=== PATIENT | female | born 1950 | race Caucasian/White ===

== ENCOUNTER 2016-12-04 21:32 | Emergency (ER) | payer BC ==
[2016-12-04] MEDS ORDERED: Sulfamethox/Trimethoprim DS 800/160* TAB PO ONE (22:14)
--- NOTE | 2016-12-04 22:20 | ED ---
GI/ HPI - HPI Summary HPI Summary: 66 yr old female with dysuria, frequency of urination for two days. Denies NV. States she has been ill for a total of two days. She rates her symptoms as moderate. No radiation of pain. symptoms made worse with urination. No fever, chills, NV. - History of Current Complaint Time Seen by Provider: 12/04/16 22:05 Stated Complaint: URINARY Hx Last Menstrual Period: age 53 - Allergy/Home Medications Allergies/Adverse Reactions: Allergies Allergy/AdvReac Type Severity Reaction Status Date / Time Penicillins Allergy Rash Verified 10/05/14 08:56 PMH/Surg Hx/FS Hx/Imm Hx Cardiovascular History: Reports: Hx Hypertension - Surgical History Hx Anesthesia Reactions: Yes Other Surgical History: d and c - Family History Family History: stroke - Social History Occupation: Retired Alcohol Use: Occasionally Substance Use Type: Reports: None Smoking Status (MU): Never Smoked Tobacco Review of Systems Constitutional: Negative Positive: burning, dysuria, urgency All Other Systems Reviewed And Are Negative: Yes Physical Exam Triage Information Reviewed: Yes Vital Signs Reviewed: Yes Appearance: Positive: Well-Appearing, No Pain Distress Skin: Positive: Warm Head/Face: Positive: Normal Head/Face Inspection Eyes: Positive: EOMI ENT: Positive: Normal ENT inspection Neck: Positive: Nontender Respiratory/Lung Sounds: Positive: Clear to Auscultation, Breath Sounds Present Cardiovascular: Positive: RRR Abdomen Description: Positive: Nontender. Negative: CVA Tenderness (R), CVA Tenderness (L) Musculoskeletal: Positive: Strength/ROM Intact Neurological: Positive: Alert, Oriented to Person Place, Time, Normal Gait Psychiatric: Positive: Normal Diagnostics - Laboratory Lab Results: Lab Results 12/04/16 Range/Units 22:06 POC Urine Color Yellow POC Urine Clarity Clear POC Urine pH 5.5 (5-9) POC Ur Specif [place] 1.015 (1.010-1.030) POC Urine Protein 2+ H (Negative) POC Ur Glucose (UA) Negative (Negative) POC Urine Ketones 1+ H (Negative) POC Urine Blood 3+ H (Negative) POC Urine Nitrite Negative (Negative) POC Urine Bilirubin Negative (Negative) POC Urine Urobilinogen 0.2 (Negative) POC U Leukocyte Esteras 3+ H (Negative) Lab Statement: Any lab studies that have been ordered have been reviewed, and results considered in the medical decision making process. GIGU Course/Dx - Course Course Of Treatment: Female with urinary symptoms and positive uti. Will DC home on bactrim DS. - Diagnoses Provider Diagnoses: UTI (urinary tract infection) Discharge - Discharge Plan Condition: Good Disposition: HOME Prescriptions: Sulfamethox/Trimethoprim DS* [Bactrim DS 800/160 TAB*] 1 tab PO BID #10 tab Patient Education Materials: Urinary Tract Infection in Women (ED) Referrals: Bar Bower MD [Primary Care Provider] -
[2016-12-04 22:23] VITALS: BP 124/83
--- NOTE | 2016-12-07 15:37 | UC ---
Progress - Progress Note Progress Note: i did not see where t had been prescribed an abx in [facility]. so, i call pt and she informed me that she was given an rx for bactrim that she has been taking and she is feeling better.
== END 2016-12-04 22:32 | disposition home or self-care (01) ==
LOC: UCCORT 21:32
DX: N39.0 Urinary tract infection, site not specified (principal); I10 Essential (primary) hypertension; Z88.0 Allergy status to penicillin
CPT/HCPCS: 81003; 87077; 87086; 87186; 99212; A9270-GY; G0463

== ENCOUNTER 2018-02-10 17:35 | Emergency (ER) | payer MEDICARE, BC ==
[2018-02-10 18:46] VITALS: BP 147/66
--- NOTE | 2018-02-10 19:08 | UC ---
Complaint Female HPI - HPI Summary HPI Summary: Pt c/o sudden onset of urinary frequency, urgency and dysuria X 1 day. - History Of Current Complaint Chief Complaint: UCGU Stated Complaint: URINARY COMPLAINT Time Seen by Provider: 02/10/18 18:48 Hx Obtained From: Patient Hx Last Menstrual Period: age 53 ?: No Onset/Duration: Sudden Onset, Lasting Hours Timing: Constant Severity Initially: Mild Severity Currently: Mild Pain Intensity: 7 Character: Dull, Burning Aggravating Factor(s): Urination Associated Signs And Symptoms: Positive: Negative - Risk Factors Ectopic Risk Factor: Negative Ovarian Torsion Risk Factor: Negative - Allergies/Home Medications Allergies/Adverse Reactions: Allergies Allergy/AdvReac Type Severity Reaction Status Date / Time MS Penicillins [Penicillins] Allergy Rash Verified 12/04/16 22:18 Home Medications: Home Medications Levothyroxine TAB* [Synthroid 25 MCG TAB*] 25 mcg PO DAILY 02/10/18 [History Confirmed 02/10/18] PMH/Surg Hx/FS Hx/Imm Hx Previously Healthy: Yes Endocrine History: Dyslipidemia - Surgical History Surgical History: None Surgery Procedure, Year, and Place: T&A Other Surgical History: d and c - Family History Known Family History: Positive: Cardiac Disease Family History: stroke - Social History Occupation: Retired Lives: With Family Alcohol Use: Occasionally Substance Use Type: None Smoking Status (MU): Never Smoked Tobacco Have You Smoked in the Last Year: No Review of Systems Constitutional: Negative Skin: Negative Eyes: Negative ENT: Negative Respiratory: Negative Cardiovascular: Negative Gastrointestinal: Negative Genitourinary: Dysuria, Frequency, Urgency Motor: Negative Neurovascular: Negative Musculoskeletal: Negative Neurological: Negative Psychological: Negative Is Patient Immunocompromised?: No All Other Systems Reviewed And Are Negative: Yes Physical Exam Triage Information Reviewed: Yes Appearance: Well-Appearing Vital Signs: Initial Vital Signs Temp 97.1 F 02/10/18 18:40 Pulse 79 02/10/18 18:40 Resp 16 02/10/18 18:40 BP 147/66 02/10/18 18:40 Pulse Ox 100 02/10/18 18:40 Vital Signs Reviewed: Yes Eye Exam: Normal ENT Exam: Normal Dental Exam: Normal Neck exam: Normal Respiratory Exam: Normal Cardiovascular Exam: Normal Abdominal Exam: Normal Abdomen Description: Positive: Nontender Musculoskeletal Exam: Normal Neurological Exam: Normal Psychological Exam: Normal Skin Exam: Normal Complaint Female Dx - Differential Dx/Diagnosis Differential Diagnosis/HQI/PQRI: Urinary Tract Infection Provider Diagnoses: UTI Discharge - Sign-Out/Discharge Documenting (check all that apply): Patient Departure All imaging exams completed and their final reports reviewed: No Studies - Discharge Plan Condition: Stable Disposition: HOME Prescriptions: Cephalexin CAP* [Keflex 500 CAP*] 500 mg PO Q8H #21 cap Phenazopyridine TAB* [Pyridium 100 mg TAB*] 100 mg PO Q8H #3 tab Patient Education Materials: Urinary Tract Infection in Women (ED) Referrals: Latia Evans MD [Primary Care Provider] - If Needed - Billing Disposition and Condition Condition: STABLE Disposition: Home
== END 2018-02-10 19:25 | disposition home or self-care (01) ==
LOC: UCCORT 17:35
DX: N39.0 Urinary tract infection, site not specified (principal); E78.5 Hyperlipidemia, unspecified; Z88.0 Allergy status to penicillin
CPT/HCPCS: 81003; 87077; 87086; 87186; 99213; G0463

== ENCOUNTER 2018-02-22 21:27 | Emergency (ER) | payer MEDICARE, BC ==
--- OUTSIDE RECORDS SUMMARY | 2018-02-22 21:37 | XMS REPORT | Continuity of Care Document ---
:1950 External Reference #:[id number] Author Name aMninder Garcia M.D. Address [address] 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 Active Family History Date Family Member(s) Problem(s) Comments Father Heart Disease Mother Cancer Mother High BP Social History Type Date Description Comments Sex Unknown ETOH Use Occasionally consumes alcohol Tobacco Use Start: Unknown Patient has never smoked Smoking Status Reviewed: 01/27/18 Patient has never smoked Allergies, Adverse Reactions, Alerts Date Description Reaction Status Severity Comments 11/23/2013 Penicillin Active Medications Medication Date Status Form Strength Qnty SIG Indications Ordering Provider Flonase Active Suspension 50mcg/Act Unknown /0000 Simvastatin 00/ Active Tablets Unknown /0000 Valacyclovir HCL Active Tablets 500mg Klepeck /0000 Bar SAGASTUME Hydrochlorothiazide Active Tablets 25mg Klepeck /0000 , Bar Synthroid / Active Tablets 25mcg Unknown /0000 Hydrochlorothiazide Hx Capsules Unknown /0000 - 01/27 Meloxicam 00/00 Hx Tablets 15mg Unknown /0000 - 01/27 Hydrocodone-Acetami 0000 Hx Tablets 5-325mg Unknown nophen /0000 - 01/27 Azithromycin 00 Hx Tablets 250mg take 2 Unknown /0000 tablets - by mouth 01/27 on day then 1 tablet on days 2 through 5 Triamcinolone 00 Hx Cream 0.5% [place]wich, Acetonide /0000 Monse Kennedy MD 01/27 Immunizations Description No Information Available Vital Signs Date Vital Result Comment 01/27/2018 9:17am Intraocular Pressure Right Eye 16 mmHg Intraocular Pressure Left Eye 16 mmHg 01/25/2017 9:04am Intraocular Pressure Right Eye 16 mmHg Intraocular Pressure Left Eye 16 mmHg 01/20/2016 9:34am Intraocular Pressure Right Eye 15 mmHg Intraocular Pressure Left Eye 15 mmHg 01/04/2015 1:21pm Intraocular Pressure Right Eye 15 mmHg Intraocular Pressure Left Eye 15 mmHg 08/07/2014 2:44pm Intraocular Pressure Right Eye 18 mmHg Intraocular Pressure Left Eye 18 mmHg 07/02/2014 1:36pm Intraocular Pressure Right Eye 18 mmHg Intraocular Pressure Left Eye 18 mmHg 11/23/2013 1:17pm Intraocular Pressure Right Eye 16 mmHg Intraocular Pressure Left Eye 16 mmHg Results Description No Information Available Procedures Date Code Description Status 01/27/2018 56827 Ophthalmoscopy Subsequent Completed 01/27/2018 66113 Refraction Completed 01/27/2018 57717 Eye Exam Est Comprehensive Completed 01/25/2017 73730 Ophthalmoscopy Subsequent Completed 01/25/2017 28801 Refraction Completed 01/25/2017 60350 Eye Exam Est Intermediate Completed 01/20/2016 04574 Ophthalmoscopy Subsequent Completed 01/20/2016 13318 Refraction Completed 01/20/2016 89711 Eye Exam Est Intermediate Completed 01/25/2015 66090 Excision Lesion Eyelid Completed 01/04/2015 25539 External Photography W/Interpretation & Report Completed 01/04/2015 99121 Refraction Completed 01/04/2015 64813 Eye Exam Est Comprehensive Completed 08/07/2014 47640 Ophthalmoscopy Subsequent Completed 08/07/2014 44994 Eye Exam Est Intermediate Completed 11/23/2013 07056 Ophthalmoscopy Subsequent Completed 11/23/2013 37499 Refraction Completed 11/23/2013 85413 Eye Exam Est Comprehensive Completed 06/26/2011 25648 Eye Exam Est Intermediate Completed 06/26/2011 82139 Ophthalmoscopy Subsequent Completed 06/02/2011 44589 Ophthalmoscopy Initial Completed 06/02/2011 39472 Eye Exam Est Intermediate Completed 09/26/2010 48251 Refraction Completed 09/26/2010 32906 Eye Exam Est Comprehensive Completed 03/25/2009 72675 Eye Exam Est Intermediate Completed 03/18/2009 11915 Eye Exam Est Intermediate Completed 03/18/2009 54429 Correct Trichiasis, Epilation By Forceps Only Completed 08/03/2008 08596 Refraction Completed 08/03/2008 59124 Ophthalmoscopy Initial Completed 05/29/2008 97665 Eye Exam Est Intermediate Completed 09/30/2007 29920 Eye Exam Est Intermediate Completed 05/20/2007 37319 Eye Exam Est Intermediate Completed 03/21/2007 98745 Eye Exam Est Intermediate Completed 02/28/2007 96838 Eye Exam Est Intermediate Completed 02/02/2007 47466 Ophthalmoscopy Initial Completed 02/02/2007 06402 Eye Exam New Comprehensive Completed Encounters Type Date Location Provider Dx Diagnosis Office Visit 07/02/2014 Main Office Nicolle Lock, 379.21 Vitreous Degeneration 1:15p O.D. 368.15 Visual Distortions & Entoptic Phenomena Other Plan of Treatment 01/27/2018 - Maninder Garcia M.D.H43.813 Vitreous degeneration, [id number] Age-related nuclear cataract, [id number] Myopia, bilateralFollow up:1 yr full
[2018-02-22 21:44] VITALS: BP 135/80
--- NOTE | 2018-02-22 21:44 | UC ---
UC General HPI - HPI Summary HPI Summary: seen 2 weeks ago and tx for a uti. she got better. today, thinks may have a recurrent uti. described as bladder pressure, urinary frequency and irritation with urination. no abdominal pain or fever. - History of Current Complaint Stated Complaint: URINARY Time Seen by Provider: 02/22/18 21:33 Hx Obtained From: Patient Hx Last Menstrual Period: age 53 Onset/Duration: Gradual Onset Timing: Constant Associated Signs & Symptoms: Positive: Dysuria. Negative: Abdominal Pain, Fever - Allergy/Home Medications Allergies/Adverse Reactions: Allergies Allergy/AdvReac Type Severity Reaction Status Date / Time Penicillins Allergy Rash Verified 02/22/18 21:47 PMH/Surg Hx/FS Hx/Imm Hx Endocrine History: Thyroid Disease, Dyslipidemia Cardiovascular History: Hypertension - Surgical History Surgical History: None Surgery Procedure, Year, and Place: T&A Other Surgical History: d and c - Family History Known Family History: Positive: Cardiac Disease, Hypertension, Other - ca Family History: stroke - Social History Occupation: Retired Alcohol Use: Occasionally Substance Use Type: None Smoking Status (MU): Never Smoked Tobacco Have You Smoked in the Last Year: No - Immunization History Vaccination Up to Date: Yes Review of Systems Constitutional: Negative Skin: Negative Eyes: Negative ENT: Negative Respiratory: Negative Cardiovascular: Negative Gastrointestinal: Negative Genitourinary: Dysuria, Frequency Motor: Negative Neurovascular: Negative Musculoskeletal: Negative Neurological: Negative Psychological: Negative Is Patient Immunocompromised?: No All Other Systems Reviewed And Are Negative: Yes Physical Exam Triage Information Reviewed: Yes Appearance: Well-Appearing Vital Signs Reviewed: Yes Eyes: Positive: Conjunctiva Clear ENT: Positive: Normal ENT inspection Neck: Positive: Supple, Nontender, No Lymphadenopathy Respiratory: Positive: Lungs clear, Normal breath sounds Cardiovascular: Positive: RRR, No Murmur Abdomen Description: Positive: Nontender, No Organomegaly, Soft. Negative: CVA Tenderness (R), CVA Tenderness (L), Distended, Guarding Bowel Sounds: Positive: Present Musculoskeletal: Positive: ROM Intact Neurological: Positive: Alert Psychological: Positive: Age Appropriate Behavior Skin Exam: Normal Diagnostics - Laboratory Diagnostic Studies Completed/Ordered: u/a=positive for blood, protein and leukocytes. culture is pending Course/Dx - Differential Dx - Multi-Symptom Provider Diagnoses: UTI Discharge - Sign-Out/Discharge Documenting (check all that apply): Patient Departure All imaging exams completed and their final reports reviewed: No Studies - Discharge Plan Condition: Stable Disposition: HOME Prescriptions: Sulfamethox/Trimethoprim DS* [Bactrim DS 800/160 TAB*] 1 tab PO BID 5 Days #10 tab Patient Education Materials: Urinary Tract Infection in Women (DC) Referrals: Latia Evans MD [Primary Care Provider] - 5 Days - Billing Disposition and Condition Condition: STABLE Disposition: Home
[2018-02-22] MEDS ORDERED: Sulfamethox/Trimethoprim DS 800/160* TAB PO ONE ×2 (21:56→21:59)
--- NOTE | 2018-02-25 07:47 | ED ---
Progress - Progress Note Progress Note: U cx E coli >100k Pt on Bactrim, await sensitivities Discharge - Sign-Out/Discharge Documenting (check all that apply): Patient Departure All imaging exams completed and their final reports reviewed: No Studies - Discharge Plan Condition: Stable Disposition: HOME Prescriptions: Sulfamethox/Trimethoprim DS* [Bactrim DS 800/160 TAB*] 1 tab PO BID 5 Days #10 tab Patient Education Materials: Urinary Tract Infection in Women (DC) Referrals: Latia Evans MD [Primary Care Provider] - 5 Days - Billing Disposition and Condition Condition: STABLE Disposition: Home
== END 2018-02-22 22:04 | disposition home or self-care (01) ==
LOC: UCCORT 21:27
DX: N39.0 Urinary tract infection, site not specified (principal); I10 Essential (primary) hypertension; E07.9 Disorder of thyroid, unspecified; Z87.440 Personal history of urinary (tract) infections; Z88.0 Allergy status to penicillin
CPT/HCPCS: 81003; 87077; 87086; 87186; 99212; A9270-GY; G0463